=== PATIENT | female | born 1985 | race Caucasian/White ===

== ENCOUNTER 2019-12-01 19:43 | Emergency (ER) | payer MEDICAID ==
[~2019-12-01] VITALS: Ht 160 cm; Wt 84.4 kg
[2019-12-01 19:51] VITALS: Ht 160 cm; Wt 84.4 kg
[2019-12-01 21:41] VITALS: BP 130/81
== END 2019-12-01 21:41 | disposition home or self-care (01) ==
LOC: ED 19:43
DX: J40 Bronchitis, not specified as acute or chronic (principal)
CPT/HCPCS: J7512; J7613; J7644; Q0092